=== PATIENT | female | born 1980 | race Caucasian/White ===

== ENCOUNTER 2016-04-28 07:54 | Emergency (ER) | payer OTHER ==
[2016-04-28 08:01] VITALS: RESP 16; O2SAT 98
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
[2016-04-28 09:02] VITALS: BP 102/71; PULSE 81
[2016-04-28 09:03] VITALS: TEMP 97.9
== END 2016-04-28 09:03 | disposition home or self-care (01) ==
DX: Z77.098 Contact with and (suspected) exposure to other hazardous, chiefly nonmedicinal, chemicals (principal)